=== PATIENT | female | born 1975 | race Caucasian/White ===

== ENCOUNTER 2016-06-23 13:08 | Emergency (ER) | payer MEDICAID | END 2016-06-23 13:55 | disposition home or self-care (01) | DX: H66.002 Acute suppurative otitis media without spontaneous rupture of ear drum, left ear (principal); R03.0 Elevated blood-pressure reading, without diagnosis of hypertension ==

== ENCOUNTER 2016-11-16 12:03 | Emergency (ER) | payer MEDICAID ==
[2016-11-16 12:08] VITALS: BP 168/100
[2016-11-16] MEDS ORDERED: HYDROcod/ACETAM 5/325 MG TABLET PO STA (15:08)
--- NOTE | 2016-11-16 15:10 | ED Physician Documentation ---
PD HPI CHEST PAIN - Stated complaint Stated Complaint: LT SIDE PX - Chief complaint Chief Complaint: General - History obtained from History obtained from: Patient - History of Present Illness Timing - onset: How many days ago (1-2) Timing - onset during: Light activity (no noted impact/ significant injury, but does twisting and lifting with car seats and kids.) Timing - duration: Days (2) Timing - details: Gradual onset, Still present, Waxing and waning Quality: Sharp, Pain Location: Left chest (midaxillary area, hurting with twisting, lifting and deep breathing. Does not feel dyspnea per se.) Radiation: No: Back, Abdominal Improved by: Rest Worsened by: Exertion, Inspiration, Movement, Position. No: Eating, Palpation Associated symptoms: No: Shortness of air, Nausea, Vomiting, Feeling faint / dizzy, Cough Similar symptoms before: Has not had sx before Recently seen: Not recently seen Review of Systems Constitutional: denies: Fever Nose: denies: Rhinorrhea / runny nose, Congestion Cardiac: denies: Palpitations Respiratory: denies: Cough, Wheezing GI: denies: Abdominal Pain, Nausea, Vomiting Skin: denies: Rash, Lesions PD PAST MEDICAL HISTORY - Past Medical History Past Medical History: Yes Cardiovascular: None Respiratory: None Endocrine/Autoimmune: HyPOthyroidism - Past Surgical History Past Surgical History: Yes - Present Medications Home Medications: Ambulatory Orders Medication Instructions Recorded Confirmed Hydrocodone/Acetaminophen 10 - 15 ml PO Q4H PRN #200 ml 06/23/16 [Hydrocodon-Acetamin 7.5-325/15] Albuterol 2.5 mg INH Q4H PRN 11/16/16 11/16/16 Alprazolam [Xanax] 11/16/16 Citalopram [CeleXA] 10 mg PO ONCE 11/16/16 11/16/16 Fluconazole [Diflucan] 150 mg PO 11/16/16 Furosemide [Lasix] 20 mg PO ONCE 11/16/16 11/16/16 HYDROcod/ACETAM 5/325 [[place] 5/325] 1 tab PO Q6H PRN #20 tablet 11/16/16 Lamotrigine [Lamictal] 150 mg PO 11/16/16 Levothyroxine [Synthroid] 75 mcg PO QDAC 11/16/16 11/16/16 Multivitamin [Multiple Vitamins] 1 each PO 11/16/16 Naproxen [Naprosyn] 500 mg PO BID PRN #20 tablet 11/16/16 buPROPion [Wellbutrin Xl] 11/16/16 metFORMIN [Glucophage] 500 mg PO ONCE 11/16/16 11/16/16 raNITIdine [Zantac] 150 mg PO DAILY 11/16/16 11/16/16 - Allergies Allergies/Adverse Reactions: Allergies Allergy/AdvReac Type Severity Reaction Status Date / Time Penicillins Allergy Rash Verified 11/16/16 12:09 - Social History Does the pt smoke?: No Smoking Status: Never smoker Does the pt drink ETOH?: No Does the pt have substance abuse?: No - Family History Family history: denies: Aortic aneursym, Aortic dissection - Immunizations Immunizations are current?: Yes - POLST Patient has POLST: No PD ED PE NORMAL - Vitals Vital signs reviewed: Yes - General General: Alert and oriented X 3, Well developed/nourished - HEENT HEENT: Pharynx benign - Neck Neck: Supple, no meningeal sign, No adenopathy - Cardiac Cardiac: RRR, No murmur - Respiratory Respiratory: Clear bilaterally, Other (left chest wall tenderness about ribs area 7-8 in midaxillary line. No rash, sores, redness. ) - Abdomen Abdomen: Normal bowel sounds, Soft, Non tender - Back Back: No CVA TTP, No spinal TTP - Derm Derm: Normal color, No rash - Extremities Extremities: No deformity, No tenderness to palpate, Normal ROM s pain, No edema , No calf tenderness / cord - Neuro Neuro: Alert and oriented X 3, No motor deficit, Normal speech Results - Vitals Vitals: Oxygen O2 Source Room air - Rads (name of study) chest Radiology: Prelim report reviewed, EMP read contemporaneously (no acute process) PD MEDICAL DECISION MAKING - ED course Complexity details: reviewed results, considered differential (Pain is at chest wall level and not abdomen. Seems muscular. No rash. ), d/w patient Departure - Departure Disposition: 01 Home, Self Care Clinical Impression: Muscular chest pain Condition: Stable Record reviewed to determine appropriate education?: Yes Instructions: ED Strain Chest Wall Prescriptions: Naproxen [Naprosyn] 500 mg PO BID PRN #20 tablet PRN Reason: Pain HYDROcod/ACETAM 5/325 [[place] 5/325] 1 tab PO Q6H PRN #20 tablet PRN Reason: Pain Comments: Sorry for the delay in your care today. Your x-ray appears normal so no obvious lung process going on. It seems like musculoskeletal chest wall problem. Naproxen twice daily for the next 7-10 days. Add Tylenol or hydrocodone if needed for pain. Recheck if not better over the next few days or if other symptoms develop such as cough, fever, rash, abdominal pain. Discharge Date/Time: 11/16/16 16:27
[2016-11-16] MEDS ORDERED: HYDROcod/ACETAM 5/325 MG TABLET ONE (15:17)
--- NOTE | 2016-11-16 16:09 | XRAY Preliminary Report ---
Exam: XR Chest 2 View PA/LAT IMPRESSION: No acute intrathoracic plain film abnormality. [facility] SITE ID: [id number]
--- NOTE | 2016-11-16 16:11 | XRAY Report ---
EXAM: CHEST RADIOGRAPHY EXAM DATE: 11/16/2016 03:56 PM. CLINICAL HISTORY: Left chest pain. COMPARISON: 05/09/2008. TECHNIQUE: 2 views. FINDINGS: Lungs/Pleura: No focal opacities evident. No pleural effusion. No pneumothorax. Normal volumes. Mediastinum: Heart and mediastinal contours are unremarkable. Other: None. IMPRESSION: No acute intrathoracic plain film abnormality. [facility] Referring Provider Line: [phone] SITE ID: [id number]
== END 2016-11-16 16:27 | disposition home or self-care (01) ==
LOC: ED 12:03
DX: R07.9 Chest pain, unspecified (principal)
CPT/HCPCS: 71020; 99283; A9270

== ENCOUNTER 2016-12-14 20:41 | Emergency (ER) | payer MEDICAID ==
[2016-12-14] MEDS ORDERED: GABAPENTIN 100 MG CAPSULE PO STA (21:35)
[2016-12-14] MEDS ORDERED: KETOROLAC 60 MG/2 ML VIAL IM STA (21:35)
--- NOTE | 2016-12-14 21:41 | ED Physician Documentation ---
PD HPI BACK PAIN - Stated complaint Stated Complaint: CHEST PX - Chief complaint Chief Complaint: Back Pain - History obtained from History obtained from: Patient - History of Present Illness Timing - onset: Other (For the last 2 weeks she has had sharp pain in the left chest and left side the back that is worse if she takes a deep breath, twists or bends. It is not worse with exertion and not worse with eating. She is not short of breath. There is no nausea. She was seen here recently for this and had a chest x-ray that was negative, she followed up with her doctor who prescribed her metformin.) Review of Systems Constitutional: denies: Fever, Chills Throat: denies: Dental pain / toothache, Sore throat Cardiac: denies: Palpitations, Pedal edema, Calf pain Respiratory: denies: Dyspnea, Cough, Hemoptysis, Wheezing PD PAST MEDICAL HISTORY - Past Medical History Cardiovascular: None Respiratory: None Endocrine/Autoimmune: HyPOthyroidism - Past Surgical History Past Surgical History: Yes - Present Medications Home Medications: Ambulatory Orders Medication Instructions Recorded Confirmed Citalopram [CeleXA] 10 mg PO ONCE 11/16/16 12/14/16 Levothyroxine [Synthroid] 75 mcg PO QDAC 11/16/16 12/14/16 Naproxen [Naprosyn] 500 mg PO BID PRN #20 tablet 11/16/16 12/14/16 buPROPion [Wellbutrin Xl] 300 mg PO DAILY 11/16/16 12/14/16 metFORMIN [Glucophage] 500 mg PO ONCE 11/16/16 12/14/16 HYDROcod/ACETAM 5/325 [[place] 5/325] 1 - 2 ea PO Q6H PRN #15 tablet 12/14/16 - Allergies Allergies/Adverse Reactions: Allergies Allergy/AdvReac Type Severity Reaction Status Date / Time Penicillins Allergy Rash Verified 11/16/16 12:09 - Social History Does the pt smoke?: No Smoking Status: Never smoker Does the pt drink ETOH?: No Does the pt have substance abuse?: No - Immunizations Immunizations are current?: Yes - POLST Patient has POLST: No PD ED PE NORMAL - Vitals Vital signs reviewed: Yes - General General: Alert and oriented X 3, No acute distress, Other (Occasionally winces with motion or when laughing) - HEENT HEENT: PERRL, EOMI - Neck Neck: Supple, no meningeal sign, No bony TTP - Cardiac Cardiac: RRR, No murmur - Respiratory Respiratory: No respiratory distress, Clear bilaterally - Abdomen Abdomen: Non tender - Back Back: Other (She is tender over the rhomboid musculature on the left, but also is tender over numerous other spots suggesting fibromyalgia including the sciatic crests on both sides, either side of the neck, medial side of either elbow and the medial side of either knee.) - Extremities Extremities: No edema, No calf tenderness / cord - Neuro Neuro: Alert and oriented X 3, Normal speech - Psych Psych: Normal mood, Normal affect Results - Vitals Vitals: Vital Signs - 24 hr 12/14/16 20:52 Temperature 36.7 C Heart Rate 109 H Respiratory 22 Rate Blood Pressure 147/82 H O2 Saturation 100 Oxygen O2 Source Room air - EKG (time done) 2200 Rate: Rate (enter#) (91) Rhythm: NSR [place]: Normal Intervals: Normal [place] QRS: Normal Ischemia: Normal ST segments Computer interpretation: Agree with computer - Labs Labs: Laboratory Tests 12/14/16 12/14/16 12/14/16 21:51 22:07 22:07 WBC 10.4 RBC 4.33 Hgb 11.9 L Hct 35.8 L MCV 82.7 MCH 27.4 MCHC 33.1 RDW 15.0 Plt Count 315 MPV 7.0 L Neut # 6.7 H Lymph # 2.7 [place] # 0.7 Eos # 0.3 Baso # 0.1 Absolute Nucleated RBC 0.01 Nucleated RBC % 0.1 Sodium 135 Potassium 3.7 Chloride 102 Carbon Dioxide 24 Anion Gap 9.0 BUN 12 Creatinine 0.7 Estimated GFR (MDRD) 93 Glucose 100 Calcium 8.9 Total Bilirubin 0.4 AST 24 ALT 20 Alkaline Phosphatase 72 Total Protein 8.1 Albumin 3.9 Globulin 4.2 Albumin/Globulin Ratio 0.9 L Lipase 26 Urine Color YELLOW Urine Clarity CLEAR Urine pH 6.0 Ur Specific [place] <=1.005 Urine Protein NEGATIVE Urine Glucose (UA) NEGATIVE Urine Ketones NEGATIVE Urine Occult Blood TRACE-INTA Urine Nitrite NEGATIVE Urine Bilirubin NEGATIVE Urine Urobilinogen 0.2 (NORMAL) Ur Leukocyte Esterase NEGATIVE Ur Microscopic Review NOT INDICATED Urine Culture Comments NOT INDICATED Urine HCG, Qual NEGATIVE PD MEDICAL DECISION MAKING - ED course ED course: 41-year-old woman with muscular appearing chest wall pain, she does have multiple tender spots in areas that could be consistent with fibromyalgia, she does have rheumatology follow-up pending. We tried some Toradol and gabapentin , but she did not want to continue the gabapentin, she has taken in the past, she says it makes her swell. Departure - Departure Disposition: Home, Self Care Clinical Impression: Muscular chest pain Condition: Good Record reviewed to determine appropriate education?: Yes Instructions: ED Chest Pain NonCardiac Prescriptions: HYDROcod/ACETAM 5/325 [[place] 5/325] 1 - 2 ea PO Q6H PRN #15 tablet PRN Reason: Pain Comments: Keep the appointments that is upcoming for rheumatology follow-up. Return if worse. Discussed the possibility of fibromyalgia with your damage appraiser. Your blood pressure was elevated today on check into the emergency department. This does not mean that you have hypertension, it is a common phenomenon to come to the emergency department and have elevated blood pressure. I recommend that she see your primary care physician within the week to have it rechecked when you are feeling better. Do not drink or drive while taking narcotic pain medication. Note that many narcotic pain relievers also contain Tylenol/acetaminophen. Please ensure that your total dose of acetaminophen from all sources does not exceed 3 g (3000 mg) per day. You may get constipated while on this medication. Take a stool softener such as Colace twice a day while you are on it. Also add an ipil-wdw-oxixsay laxative such as senna or MiraLAX on any day that you do not have a bowel movement. If you received a narcotic pain medication or sedative while in the emergency department, do not drive for the next 24 hours.
[2016-12-14] MEDS ORDERED: KETOROLAC 60 MG/2 ML VIAL ONE (21:48)
[2016-12-14] MEDS ORDERED: GABAPENTIN 100 MG CAPSULE ONE (21:48)
[2016-12-14 22:05] LABS: BILIRUBIN,URINE NEGATIVE (NEGATIVE)
[2016-12-14 22:06] LABS: UA CHARGE (STRIP ONLY) YES; UR CULTURE IF IND NOT INDICATED
[2016-12-14 22:08] LABS: HCG UR QUAL NEGATIVE
[2016-12-14 22:13] LABS: BASOPHILS # (AUTO) 0.1 10^3/uL (0.0-0.1); BASOPHILS % (AUTO) 0.7 %; EOSINOPHILS # (AUTO) 0.3 10^3/uL (0.0-0.7); EOSINOPHILS % (AUTO) 2.7 %; HCT - HEMATOCRIT 35.8 % (37.0-47.0); HGB - HEMOGLOBIN 11.9 g/dL (12.0-16.0); LYMPHOCYTES # (AUTO) 2.7 10^3/uL (1.5-3.5); LYMPHOCYTES % (AUTO) 25.9 %; MEAN CORPUSCULAR HEMOGLOBIN 27.4 pg (27.0-31.0); MEAN CORPUSCULAR HGB CONC 33.1 g/dL (32.0-36.0); MEAN CORPUSCULAR VOLUME 82.7 fL (81.0-99.0); MONOCYTES # (AUTO) 0.7 10^3/uL (0.0-1.0); MONOCYTES % (AUTO) 6.5 %; NEUTROPHILS # (AUTO) 6.7 10^3/uL (1.5-6.6); NEUTROPHILS % (AUTO) 64.2 %; NUCLEATED RED BLOOD CELLS AUTO 0.1 /100WBC; RED BLOOD COUNT 4.33 10^6/uL (4.20-5.40); UNCORRECTED WHITE BLOOD COUNT 10.4 x10^3/uL; WHITE BLOOD COUNT 10.4 x10^3/uL (4.8-10.8)
[2016-12-14 22:25] LABS: ALBUMIN/GLOBULIN RATIO 0.9 (1.0-2.2); BILIRUBIN,TOTAL 0.4 mg/dL (0.2-1.0); CALCIUM 8.9 mg/dL (8.5-10.3); CREATININE 0.7 mg/dL (0.4-1.0); POTASSIUM 3.7 mmol/L (3.5-5.0); TOTAL PROTEIN 8.1 g/dL (6.7-8.2)
[2016-12-14] MEDS ORDERED: HYDROcod/ACET 5/325 Prepack 6 PO STA (22:38)
[2016-12-14] MEDS ORDERED: HYDROcod/ACET 5/325 Prepack 6 PO ONE (22:45)
[2016-12-14 22:53] VITALS: BP 153/103
== END 2016-12-14 22:54 | disposition home or self-care (01) ==
LOC: ED 20:41
DX: R07.89 Other chest pain (principal); R03.0 Elevated blood-pressure reading, without diagnosis of hypertension; E03.9 Hypothyroidism, unspecified
CPT/HCPCS: 36415; 80053; 81003; 81025; 83690; 85025; 93005; 96372; 99283; A9270; 81001; 87086

== ENCOUNTER 2017-07-18 01:52 | Emergency (ER) | payer MEDICAID ==
[2017-07-18 02:46] LABS: BASOPHILS # (AUTO) 0.2 10^3/uL (0.0-0.1); BASOPHILS % (AUTO) 1.5 %; EOSINOPHILS # (AUTO) 0.4 10^3/uL (0.0-0.7); EOSINOPHILS % (AUTO) 3.1 %; HGB - HEMOGLOBIN 12.4 g/dL (12.0-16.0); LYMPHOCYTES # (AUTO) 4.1 10^3/uL (1.5-3.5); LYMPHOCYTES % (AUTO) 30.8 %; MEAN CORPUSCULAR HEMOGLOBIN 27.6 pg (27.0-31.0); MEAN CORPUSCULAR HGB CONC 31.9 g/dL (32.0-36.0); MEAN CORPUSCULAR VOLUME 86.3 fL (81.0-99.0); MEAN PLATELET VOLUME 7.9 fL (7.9-10.8); MONOCYTES % (AUTO) 7.2 %; NEUTROPHILS # (AUTO) 7.6 10^3/uL (1.5-6.6); NEUTROPHILS % (AUTO) 57.4 %; PLT - PLATELET COUNT 278 10^3/uL (130-450); RED BLOOD COUNT 4.49 10^6/uL (4.20-5.40); RED CELL DISTRIBUTION WIDTH 15.8 % (12.0-15.0); WHITE BLOOD COUNT 13.3 x10^3/uL (4.8-10.8)
--- NOTE | 2017-07-18 03:02 | ED Physician Documentation ---
History of Present Illness - Stated complaint Stated Complaint: CHEST PAIN,SOA - Chief complaint Chief Complaint: General - History obtained from History obtained from: Patient - History of Present Illness Timing: How many weeks ago (6) - Additonal information Additional information: Patient is a 42 year old female with a history of bipolar and depression who is presenting to the emergency department for chest pain and leg swelling. Patient states that about 6 weeks ago she fell and hurt her knee. She states that since that time she has had intermittent selling in her leg. Patient states that for the last few days she has felt short of breath. Patient looked on line and her symptoms sounded like a blood clot so she wanted to come get checked out. Review of Systems Constitutional: denies: Fever, Chills Eyes: reports: Reviewed and negative Ears: reports: Reviewed and negative Nose: reports: Reviewed and negative Cardiac: reports: Chest pain / pressure, Pedal edema, Calf pain. denies: Palpitations Respiratory: reports: Dyspnea. denies: Cough, Wheezing GI: denies: Nausea, Vomiting : reports: Reviewed and negative Skin: reports: Rash Musculoskeletal: reports: Extremity pain, Extremity swelling Neurologic: reports: Reviewed and negative Psychiatric: reports: Reviewed and negative PD PAST MEDICAL HISTORY - Past Medical History Past Medical History: Yes Cardiovascular: None Respiratory: None Endocrine/Autoimmune: HyPOthyroidism Psych: Depression, Anxiety, Bipolar disorder - Past Surgical History Past Surgical History: Yes - Present Medications Home Medications: Ambulatory Orders Medication Instructions Recorded Confirmed Citalopram [CeleXA] 10 mg PO ONCE 11/16/16 12/14/16 Levothyroxine [Synthroid] 75 mcg PO QDAC 11/16/16 12/14/16 Naproxen [Naprosyn] 500 mg PO BID PRN #20 tablet 11/16/16 12/14/16 buPROPion [Wellbutrin Xl] 300 mg PO DAILY 11/16/16 12/14/16 metFORMIN [Glucophage] 500 mg PO ONCE 11/16/16 12/14/16 HYDROcod/ACETAM 5/325 [[place] 5/325] 1 - 2 ea PO Q6H PRN #15 tablet 12/14/16 - Allergies Allergies/Adverse Reactions: Allergies Allergy/AdvReac Type Severity Reaction Status Date / Time Penicillins Allergy Rash Verified 07/18/17 02:12 - Social History Does the pt smoke?: Yes Smoking Status: Current every day smoker Does the pt drink ETOH?: No Does the pt have substance abuse?: No - Immunizations Immunizations are current?: Yes - POLST Patient has POLST: No PD ED PE NORMAL - Vitals Vital signs reviewed: Yes - General General: Alert and oriented X 3 - HEENT HEENT: Atraumatic - Neck Neck: No JVD - Cardiac Cardiac: RRR, No murmur - Respiratory Respiratory: No respiratory distress, Clear bilaterally - Abdomen Abdomen: Soft - Neuro Neuro: Alert and oriented X 3, No motor deficit, Normal speech Eye Opening: Spontaneous PD ED PE EXPANDED - General General: Alert, Anxious - Derm Derm: Rash (bilateral lower extremity hemosiderin discoloration) - Extremities Extremities: Pedal edema bilateral Results - Vitals Vitals: Vital Signs - 24 hr 07/18/17 07/18/17 07/18/17 01:58 02:30 03:33 Temperature 37.1 C Heart Rate 99 97 95 Respiratory 20 18 17 Rate Blood Pressure 128/81 H 151/75 H 147/88 H O2 Saturation 100 97 98 Oxygen O2 Source Room air - EKG (time done) 0205 Rate: Rate (enter#) (98) Rhythm: NSR [place]: Normal Intervals: Normal [place] QRS: Normal Ischemia: Normal ST segments Compare to prior EKG: Old EKG unavailable - Labs Labs: Laboratory Tests 07/18/17 07/18/17 07/18/17 01:53 01:53 02:28 WBC 13.3 H RBC 4.49 Hgb 12.4 Hct 38.7 MCV 86.3 MCH 27.6 MCHC 31.9 L RDW 15.8 H Plt Count 278 MPV 7.9 Neut # 7.6 H Lymph # 4.1 H [place] # 1.0 Eos # 0.4 Baso # 0.2 H Absolute Nucleated RBC 0.00 Nucleated RBC % 0.0 PT 10.9 INR 1.0 APTT 34.9 H D-Dimer 226.3 Sodium Potassium Chloride Carbon Dioxide Anion Gap BUN Creatinine Estimated GFR (MDRD) Glucose Calcium Total Bilirubin AST ALT Alkaline Phosphatase Troponin I < 0.04 B-Natriuretic Peptide Total Protein Albumin Globulin Albumin/Globulin Ratio Lipase 07/18/17 07/18/17 02:28 02:54 WBC RBC Hgb Hct MCV MCH MCHC RDW Plt Count MPV Neut # Lymph # [place] # Eos # Baso # Absolute Nucleated RBC Nucleated RBC % PT INR APTT D-Dimer Sodium 136 Potassium 3.6 Chloride 102 Carbon Dioxide 27 Anion Gap 7.0 BUN 16 Creatinine 0.9 Estimated GFR (MDRD) 69 L Glucose 110 H Calcium 8.8 Total Bilirubin 0.5 AST 28 ALT 22 Alkaline Phosphatase 78 Troponin I B-Natriuretic Peptide 10 Total Protein 7.7 Albumin 3.8 Globulin 3.9 Albumin/Globulin Ratio 1.0 Lipase 27 PD MEDICAL DECISION MAKING - ED course Complexity details: reviewed old records, reviewed results, re-evaluated patient , considered differential, d/w patient ED course: patient was seen and examined at bedside. IV access was gained and labs were drawn. ekg was performed and was normal sinus. Patient's labs revealed no major abnormalities. Patient's d-dimer was negative. Patient's HEART score was 2. Patient required no further inpatient work up and was stable for discharge with outpatient follow up. Departure - Departure Disposition: 01 Home, Self Care Clinical Impression: Atypical chest pain Condition: Good Instructions: ED Chest Pain NonCardiac Follow-Up: TRISH ELIZABETH MD [Primary Care Provider] - Within 3 Days Comments: Your diagnostics today were within normal limits. Your symptoms are unlikely cardiac or pulmonary in nature. You should try icing and elevating your legs and wear compression stockings. You should follow up with your doctor if your symptoms persist. You may return to the emergency department at any time for new, worsening or uncontrollable symptoms. Discharge Date/Time: 07/18/17 03:50
[2017-07-18 03:09] LABS: PT - PROTHROMBIN TIME 10.9 secs (9.9-12.6)
[2017-07-18 03:11] LABS: ALBUMIN 3.8 g/dL (3.2-5.5); BILIRUBIN,TOTAL 0.5 mg/dL (0.2-1.0); CALCIUM 8.8 mg/dL (8.5-10.3); CREATININE 0.9 mg/dL (0.4-1.0); TOTAL PROTEIN 7.7 g/dL (6.7-8.2)
[2017-07-18 03:22] LABS: D-DIMER 226.3 ng/mL (200.0-255.0)
[2017-07-18 03:39] VITALS: BP 147/88
== END 2017-07-18 03:50 | disposition home or self-care (01) ==
LOC: ED 01:52
DX: R07.9 Chest pain, unspecified (principal); E03.9 Hypothyroidism, unspecified; F31.9 Bipolar disorder, unspecified; F41.9 Anxiety disorder, unspecified; F17.200 Nicotine dependence, unspecified, uncomplicated; M79.89 Other specified soft tissue disorders; R06.02 Shortness of breath
CPT/HCPCS: 36415; 80053; 83690; 83880; 84484; 85025; 85379; 85610; 85730; 93005; 99283; 99284

== ENCOUNTER 2017-09-18 17:53 | Emergency (ER) | payer MEDICAID ==
[2017-09-18] MEDS ORDERED: TETANUS/DIPHTHERIA/PERTUSSIS 0.5 ML SYRINGE IM ONE (18:38)
[2017-09-18] MEDS ORDERED: LIDOCAINE 2% 10 ML MDV ONE (18:41)
--- NOTE | 2017-09-18 19:22 | ED Physician Documentation ---
PD HPI UPPER EXT INJURY - Stated complaint Stated Complaint: LT FING LAC INJ - Chief complaint Chief Complaint: Laceration - History obtained from History obtained from: Patient - History of Present Illness Location: Left, Finger Type of injury: Laceration Where injury occurred: Home Timing - details: Abrupt onset Worsened by: Palpating Similar symptoms before: Has not had sx before Recently seen: Not recently seen - Additonal information Additional information: Patient is a 42 year old female who is presenting to the emergency department for finger laceration. Patient states that she was doing arts and crafts when she cut the index finger on her left hand. Patient is unsure of her tetanus status. Review of Systems Ten Systems: 10 systems reviewed and negative PD PAST MEDICAL HISTORY - Past Medical History Past Medical History: No Cardiovascular: None Respiratory: None Endocrine/Autoimmune: HyPOthyroidism Psych: Depression, Anxiety, Bipolar disorder - Past Surgical History Past Surgical History: Yes - Present Medications Home Medications: Ambulatory Orders Medication Instructions Recorded Confirmed Citalopram [CeleXA] 10 mg PO ONCE 11/16/16 12/14/16 Levothyroxine [Synthroid] 75 mcg PO QDAC 11/16/16 12/14/16 Naproxen [Naprosyn] 500 mg PO BID PRN #20 tablet 11/16/16 12/14/16 buPROPion [Wellbutrin Xl] 300 mg PO DAILY 11/16/16 12/14/16 metFORMIN [Glucophage] 500 mg PO ONCE 11/16/16 12/14/16 HYDROcod/ACETAM 5/325 [[place] 5/325] 1 - 2 ea PO Q6H PRN #15 tablet 12/14/16 - Allergies Allergies/Adverse Reactions: Allergies Allergy/AdvReac Type Severity Reaction Status Date / Time Penicillins Allergy Rash Verified 07/18/17 02:12 - Social History Does the pt smoke?: Yes Smoking Status: Current every day smoker Does the pt drink ETOH?: No Does the pt have substance abuse?: No - Immunizations Immunizations are current?: Yes - POLST Patient has POLST: No PD ED PE NORMAL - General General: Alert and oriented X 3 - HEENT HEENT: Atraumatic - Cardiac Cardiac: RRR - Respiratory Respiratory: No respiratory distress - Neuro Neuro: Alert and oriented X 3 PD ED PE EXPANDED - Extremities Extremities: Left finger(s) (2cm lac distal portion of fat pad), Motor intact, Sensory intact, Vascular intact, Tendon intact Results - Vitals Vitals: Vital Signs - 24 hr 09/18/17 09/18/17 18:05 19:26 Temperature 36.0 C L 36.0 C L Heart Rate 95 94 Respiratory 18 20 Rate Blood Pressure 144/87 H 142/91 H O2 Saturation 99 96 Oxygen O2 Source Room air Procedures - Laceration (location) left 2nd digit Length in cm: 2 Wound type: Flap Neurovascular status: Sensory intact, Motor intact, Vascular intact Tendon involvement: Tendon intact Anesthesia: Lidocaine 2% Wound Preparation: Irrigated copiously NS Skin layer closure: Size #-0 - enter number (4), Sutures - enter # (4) Other: Patient tolerated well, Neurovascular intact, Dressing applied, Tetanus booster given Complexity: Simple PD MEDICAL DECISION MAKING - ED course Complexity details: reviewed old records, reviewed results, re-evaluated patient , d/w patient ED course: Patient was seen and examined at bedside. Patient's laceration was repaired as described above. patient was stable for discharge with outpatient follow up. - Sepsis Event Vital Signs: Vital Signs - 24 hr 09/18/17 09/18/17 18:05 19:26 Temperature 36.0 C L 36.0 C L Heart Rate 95 94 Respiratory 18 20 Rate Blood Pressure 144/87 H 142/91 H O2 Saturation 99 96 Oxygen O2 Source Room air Departure - Departure Disposition: 01 Home, Self Care Clinical Impression: Laceration Condition: Good Instructions: ED Laceration Sure Close Follow-Up: TRISH ELIZABETH MD [Primary Care Provider] - As Needed Comments: Your symptoms today are being caused by a finger laceration. you will need to keep it clean and dry. the sutures will dissolve on their own. you can take motrin or tylenol as needed for pain. You should monitor for signs of infection. You may return to the emergency department at any time for new, worsening or uncontrollable symptoms. Discharge Date/Time: 09/18/17 19:26
[2017-09-18 19:28] VITALS: BP 142/91
== END 2017-09-18 19:26 | disposition home or self-care (01) ==
LOC: ED 17:53
DX: S61.211A Laceration without foreign body of left index finger without damage to nail, initial encounter (principal); F17.200 Nicotine dependence, unspecified, uncomplicated; Z23 Encounter for immunization; W27.8XXA Contact with other nonpowered hand tool, initial encounter; Y92.009 Unspecified place in unspecified non-institutional (private) residence as the place of occurrence of the external cause; Y99.8 Other external cause status
CPT/HCPCS: 12001; 90471; 99283

== ENCOUNTER 2018-07-31 17:30 | Emergency (ER) | payer MEDICAID ==
[2018-07-31] MEDS ORDERED: KETOROLAC 60 MG/2 ML VIAL IM STA (17:58)
[2018-07-31] MEDS ORDERED: HYDROmorphone 1 MG/ML CARPUJECT IM STA (17:58)
--- NOTE | 2018-07-31 18:01 | ED Physician Documentation ---
PD HPI CHEST PAIN - Stated complaint Stated Complaint: RT RIB PAIN - Chief complaint Chief Complaint: Abd Pain - History obtained from History obtained from: Patient - History of Present Illness Timing - onset: Other (2 days ago during a cough felt A pop in the right lower lateral ribs and has had severe pain especially with deep breathing ever since. She is not coughing a lot per se. She is not short of breath.) Review of Systems Constitutional: denies: Fever, Chills Cardiac: denies: Palpitations Respiratory: denies: Dyspnea, Cough PD PAST MEDICAL HISTORY - Past Medical History Cardiovascular: None Respiratory: None Endocrine/Autoimmune: HyPOthyroidism Psych: Depression, Anxiety, Bipolar disorder - Past Surgical History Past Surgical History: Yes - Present Medications Home Medications: Ambulatory Orders Medication Instructions Recorded Confirmed Citalopram [CeleXA] 10 mg PO ONCE 11/16/16 12/14/16 Levothyroxine [Synthroid] 75 mcg PO QDAC 11/16/16 12/14/16 buPROPion [Wellbutrin Xl] 300 mg PO DAILY 11/16/16 12/14/16 metFORMIN [Glucophage] 500 mg PO ONCE 11/16/16 12/14/16 Hydrocodone/Acetaminophen 1 - 2 each PO Q6H PRN #14 tablet 07/31/18 [Hydrocodon-Acetaminophen 5-325] Ibuprofen [Motrin] 800 mg PO Q8H PRN #30 tablet 07/31/18 Lisinopril 10 mg PO 07/31/18 07/31/18 - Allergies Allergies/Adverse Reactions: Allergies Allergy/AdvReac Type Severity Reaction Status Date / Time Penicillins Allergy Rash Verified 07/31/18 17:53 - Social History Does the pt smoke?: Yes Smoking Status: Current every day smoker Does the pt drink ETOH?: No ETOH Use: Wine Does the pt have substance abuse?: No - Immunizations Immunizations are current?: Yes - POLST Patient has POLST: No PD ED PE NORMAL - Vitals Vital signs reviewed: Yes - General General: Alert and oriented X 3, No acute distress - Neck Neck: Supple, no meningeal sign, No bony TTP - Cardiac Cardiac: RRR, No murmur - Respiratory Respiratory: No respiratory distress, Other (Splinting her breaths on the right, she is tender to the right lower lateral ribs. No corresponding abdominal tenderness.) - Abdomen Abdomen: Non tender - Extremities Extremities: No edema, No calf tenderness / cord - Neuro Neuro: Alert and oriented X 3, Normal speech Results - Vitals Vitals: Vital Signs - 24 hr 07/31/18 17:46 Temperature 36.7 C Heart Rate 111 H Respiratory 18 Rate Blood Pressure 193/105 H O2 Saturation 99 Oxygen O2 Source Room air - Rads (name of study) R ribs and chest Radiology: EMP read contemporaneously (normal) PD MEDICAL DECISION MAKING - ED course ED course: 43-year-old woman presents with right chest wall pain that started clearly while coughing and is reproducible consistent with intercostal muscle tear. Departure - Departure Disposition: 01 Home, Self Care Clinical Impression: Intercostal muscle tear Qualifiers: Encounter type: initial encounter Qualified Code(s): S29.019A - Strain of muscle and tendon of unspecified wall of thorax, initial encounter Condition: Good Record reviewed to determine appropriate education?: Yes Instructions: ED Contusion Chest Wall Prescriptions: Hydrocodone/Acetaminophen [Hydrocodon-Acetaminophen 5-325] 1 - 2 each PO Q6H PRN #14 tablet PRN Reason: pain Ibuprofen [Motrin] 800 mg PO Q8H PRN #30 tablet PRN Reason: PAIN &/OR FEVER Comments: Call your doctor to arrange a follow-up appointment, make the next available appointment. In the interim, return anytime if worse or if new symptoms develop. Do not drink or drive while taking narcotic pain medication. Note that many narcotic pain relievers also contain Tylenol/acetaminophen. Please ensure that your total dose of acetaminophen from all sources does not exceed 3 g (3000 mg) per day. You may get constipated while on this medication. Take a stool softener such as Colace twice a day while you are on it. Also add an xire-afd-ptynagm laxative such as senna or MiraLAX on any day that you do not have a bowel movement. If you received a narcotic pain medication or sedative while in the emergency department, do not drive for the next 24 hours. Your blood pressure was elevated today on check into the emergency department. This does not mean that you have hypertension, it is a common phenomenon to come to the emergency department and have elevated blood pressure. I recommend that you see your primary care physician within the week to have it rechecked when you are feeling better.
--- NOTE | 2018-07-31 18:51 | XRAY Report ---
Reason: rib pain Procedure Date: 07/31/2018 Accession Number: [id number] / [id number] Procedure: XR - Ribs w/PA Chest RT CPT Code: FULL RESULT: EXAM: RIGHT RIB RADIOGRAPHY EXAM DATE: 07/31/2018 06:37 PM. CLINICAL HISTORY: Rib pain. COMPARISON: CHEST 2 VIEW PA/LAT 11/16/2016 3:36 PM. TECHNIQUE: 1 view of the chest and 2 views of the ribs. FINDINGS: Bones: Normal. No fracture or bone lesion. Lungs: No focal opacities. No pneumothorax. No pleural effusions. Mediastinum: Heart and mediastinal contours are unremarkable. Other: None. IMPRESSION: Normal chest and rib radiography. [facility]
[2018-07-31 19:01] VITALS: BP 143/105
== END 2018-07-31 19:00 | disposition home or self-care (01) ==
LOC: ED 17:30
DX: S29.011A Strain of muscle and tendon of front wall of thorax, initial encounter (principal); X58.XXXA Exposure to other specified factors, initial encounter; R03.0 Elevated blood-pressure reading, without diagnosis of hypertension; F17.200 Nicotine dependence, unspecified, uncomplicated
CPT/HCPCS: 71101; 96372; 99283; J1170

== ENCOUNTER 2018-09-27 15:39 | Emergency (ER) | payer MEDICAID ==
--- NOTE | 2018-09-27 16:16 | XRAY Report ---
Reason: CP Procedure Date: 09/27/2018 Accession Number: [id number] / [id number] Procedure: XR - Chest 1 View X-Ray CPT Code: 07468 FULL RESULT: EXAM: CHEST RADIOGRAPHY EXAM DATE: 09/27/2018 04:07 PM. CLINICAL HISTORY: Chest pain for 2 weeks. COMPARISON: RIBS W/PA CHEST RT 07/31/2018 6:21 PM. TECHNIQUE: 1 view. FINDINGS: Lungs/Pleura: No focal opacities evident. No pleural effusion. No pneumothorax. Mediastinum: Within exam limitations, the cardiomediastinal contour is normal. Other: No fractures identified. IMPRESSION: Normal single view chest. [facility]
[2018-09-27 16:24] LABS: BASOPHILS # (AUTO) 0.1 10^3/uL (0.0-0.1); BASOPHILS % (AUTO) 0.5 %; EOSINOPHILS # (AUTO) 0.3 10^3/uL (0.0-0.7); EOSINOPHILS % (AUTO) 2.8 %; HGB - HEMOGLOBIN 13.4 g/dL (12.0-16.0); LYMPHOCYTES # (AUTO) 2.8 10^3/uL (1.5-3.5); LYMPHOCYTES % (AUTO) 22.9 %; MEAN CORPUSCULAR HEMOGLOBIN 30.5 pg (27.0-31.0); MEAN CORPUSCULAR HGB CONC 32.4 g/dL (32.0-36.0); MEAN CORPUSCULAR VOLUME 93.9 fL (81.0-99.0); MEAN PLATELET VOLUME 9.1 fL (7.9-10.8); MONOCYTES # (AUTO) 0.9 10^3/uL (0.0-1.0); MONOCYTES % (AUTO) 7.2 %; NEUTROPHILS # (AUTO) 7.8 10^3/uL (1.5-6.6); PLT - PLATELET COUNT 365 10^3/uL (130-450); RED CELL DISTRIBUTION WIDTH 13.2 % (12.0-15.0)
--- NOTE | 2018-09-27 16:28 | ED Physician Documentation ---
PD HPI CHEST PAIN - Stated complaint Stated Complaint: CHEST PX - Chief complaint Chief Complaint: Cardiac - History obtained from History obtained from: Patient - History of Present Illness Timing - onset: How many days ago (3) Timing - onset during: Rest Timing - details: Still present Quality: Pain Location: Substernal Worsened by: Inspiration, Other (cough) Associated symptoms: Cough. No: Shortness of air, Nausea, Vomiting Similar symptoms before: Has not had sx before - Additional information Additional information: The patient is a 43-year-old female who presents with substernal chest pain that started 3 days ago and has persisted since that time. It is worse with inspiration or with coughing. She reports a nonproductive cough. She denies fever, shortness of breath, nausea or vomiting. She also reports slight discomfort in her upper back. She denies history of similar symptoms in the past. Medical history is significant for hypertension and diabetes. She does not smoke cigarettes. Review of Systems Constitutional: denies: Fever, Fatigue Ears: denies: Tinnitus/ringing Nose: denies: Congestion Throat: denies: Sore throat Cardiac: reports: Chest pain / pressure. denies: Palpitations Respiratory: reports: Cough. denies: Dyspnea GI: denies: Abdominal Pain, Nausea, Vomiting : denies: Dysuria Skin: denies: Rash Musculoskeletal: denies: Extremity pain, Extremity swelling Neurologic: denies: Focal weakness, Numbness, Headache PD PAST MEDICAL HISTORY - Past Medical History Cardiovascular: None, Hypertension Respiratory: None Endocrine/Autoimmune: Type 2 diabetes, HyPOthyroidism Psych: Depression, Anxiety, Bipolar disorder - Past Surgical History Past Surgical History: Yes - Present Medications Home Medications: Ambulatory Orders Medication Instructions Recorded Confirmed Citalopram [CeleXA] 10 mg PO ONCE 11/16/16 12/14/16 Levothyroxine [Synthroid] 75 mcg PO QDAC 11/16/16 12/14/16 buPROPion [Wellbutrin Xl] 300 mg PO DAILY 11/16/16 12/14/16 metFORMIN [Glucophage] 500 mg PO ONCE 11/16/16 12/14/16 Hydrocodone/Acetaminophen 1 - 2 each PO Q6H PRN #14 tablet 07/31/18 [Hydrocodon-Acetaminophen 5-325] Ibuprofen [Motrin] 800 mg PO Q8H PRN #30 tablet 07/31/18 Lisinopril 10 mg PO 07/31/18 07/31/18 Hydrocodone/Acetaminophen 1 - 2 each PO Q6H PRN #12 tablet 09/27/18 [Hydrocodon-Acetaminophen 5-325] Naproxen 500 mg PO BID #30 tablet 09/27/18 - Allergies Allergies/Adverse Reactions: Allergies Allergy/AdvReac Type Severity Reaction Status Date / Time Penicillins Allergy Rash Verified 09/27/18 15:44 - Social History Does the pt smoke?: Yes Smoking Status: Current every day smoker Does the pt drink ETOH?: No Does the pt have substance abuse?: No - Immunizations Immunizations are current?: Yes - POLST Patient has POLST: No PD ED PE NORMAL - Vitals Vital signs reviewed: Yes (Hypertensive) - General General: Alert and oriented X 3, Well developed/nourished, Other (Morbidly obese.) - HEENT HEENT: Atraumatic, Pharynx benign - Neck Neck: No adenopathy, No JVD - Cardiac Cardiac: RRR, No murmur - Respiratory Respiratory: No respiratory distress, Clear bilaterally - Abdomen Abdomen: Soft, Non tender - Back Back: No CVA TTP - Derm Derm: No rash - Extremities Extremities: No edema, No calf tenderness / cord - Neuro Neuro: Alert and oriented X 3, No motor deficit, Normal speech Results - Vitals Vitals: Vital Signs - 24 hr 09/27/18 15:41 Temperature 35.9 C L Heart Rate 93 Respiratory 19 Rate Blood Pressure 174/104 H O2 Saturation 99 Oxygen O2 Source Room air - EKG (time done) 15:50 Rate: Rate (enter#) (87) Rhythm: NSR [place]: Normal Intervals: Normal [place] QRS: Normal Ischemia: Normal ST segments Computer interpretation: Agree with computer - Labs Labs: Laboratory Tests 09/27/18 09/27/18 09/27/18 16:10 16:10 16:10 WBC 12.0 H RBC 4.40 Hgb 13.4 Hct 41.3 MCV 93.9 MCH 30.5 MCHC 32.4 RDW 13.2 Plt Count 365 MPV 9.1 Neut # (Auto) 7.8 H Lymph # (Auto) 2.8 [place] # (Auto) 0.9 Eos # (Auto) 0.3 Baso # (Auto) 0.1 Absolute Nucleated RBC 0.00 Nucleated RBC % 0.0 Sodium 138 Potassium 4.0 Chloride 97 L Carbon Dioxide 28 Anion Gap 13.0 BUN 14 Creatinine 0.8 Estimated GFR (MDRD) 79 L Glucose 105 H Calcium 9.8 Total Bilirubin 0.7 AST 25 ALT 25 Alkaline Phosphatase 94 Troponin I < 0.04 Troponin I High Sens 5.8 Total Protein 8.3 H Albumin 3.8 Globulin 4.5 H Albumin/Globulin Ratio 0.8 L Lipase 26 - Rads (name of study) CXR Radiology: Prelim report reviewed, EMP read contemporaneously, See rad report (Normal single view chest.) PD MEDICAL DECISION MAKING - ED course Complexity details: reviewed old records, reviewed results, re-evaluated patient, considered differential, d/w patient ED course: The patient's presentation is most consistent with pleurisy. She has the typical pleuritic chest pain, with a normal-appearing chest x-ray. I doubt cardiac ischemia, and her EKG and troponin are normal. I doubt pulmonary embolus. Gastroesophageal reflux was considered, but is less likely. Treatment in the emergency department included administration of GI cocktail, which did not change her symptoms. Naprosyn 500 mg administered orally. She is being discharged with prescription for Naprosyn, and for Vicodin, 12 tablets. I discussed with her the expected course of illness, symptomatic treatment and outpatient follow-up, as well as potentially worrisome signs or symptoms that should prompt reevaluation in the emergency department. Departure - Departure Disposition: 01 Home, Self Care Clinical Impression: Pleurisy Condition: Stable Instructions: ED Chest Pain Pleurisy Follow-Up: Ruben Riley MD [Primary Care Provider] - Prescriptions: Hydrocodone/Acetaminophen [Hydrocodon-Acetaminophen 5-325] 1 - 2 each PO Q6H PRN #12 tablet PRN Reason: pain Naproxen 500 mg PO BID #30 tablet Comments: Take Naproxen twice daily as prescribed. You can use Vicodin as prescribed if needed for pain. Follow-up with your primary physician within 1 week. Call to schedule an appointment. Return to the emergency department if you develop increasing chest pain or shortness of breath, or otherwise worsening symptoms.
[2018-09-27 16:32] LABS: ALBUMIN 3.8 g/dL (3.2-5.5); ALBUMIN/GLOBULIN RATIO 0.8 (1.0-2.2); BILIRUBIN,TOTAL 0.7 mg/dL (0.2-1.0); CALCIUM 9.8 mg/dL (8.5-10.3); CREATININE 0.8 mg/dL (0.4-1.0); TOTAL PROTEIN 8.3 g/dL (6.7-8.2)
[2018-09-27] MEDS ORDERED: MAG HYDROX/AL HYDROX/SIMETH 30 ML UDC PO STA (16:32)
[2018-09-27] MEDS ORDERED: LIDOCAINE VISCOUS 2% 15 ML UDC MM STA (16:33)
[2018-09-27 16:37] LABS: TROPONIN I < 0.04 ng/mL (<0.49)
[2018-09-27] MEDS ORDERED: NAPROXEN 250 MG TABLET PO STA (17:29)
[2018-09-27 17:56] VITALS: BP 168/91
== END 2018-09-27 17:55 | disposition home or self-care (01) ==
LOC: ED 15:39
DX: R09.1 Pleurisy (principal); I10 Essential (primary) hypertension; E11.9 Type 2 diabetes mellitus without complications; Z79.84 Long term (current) use of oral hypoglycemic drugs; F17.200 Nicotine dependence, unspecified, uncomplicated
CPT/HCPCS: 36415; 71045; 80053; 83690; 84484; 85025; 93005; 99283; 99284; A9270

== ENCOUNTER 2018-12-02 18:35 | Emergency (ER) | payer MEDICAID ==
[2018-12-02 20:58] LABS: BASOPHILS % (AUTO) 0.4 %; EOSINOPHILS # (AUTO) 0.3 10^3/uL (0.0-0.7); EOSINOPHILS % (AUTO) 3.3 %; HGB - HEMOGLOBIN 12.3 g/dL (12.0-16.0); LYMPHOCYTES # (AUTO) 2.3 10^3/uL (1.5-3.5); LYMPHOCYTES % (AUTO) 27.4 %; MEAN CORPUSCULAR HEMOGLOBIN 31.1 pg (27.0-31.0); MEAN CORPUSCULAR HGB CONC 32.7 g/dL (32.0-36.0); MEAN CORPUSCULAR VOLUME 94.9 fL (81.0-99.0); MONOCYTES # (AUTO) 0.5 10^3/uL (0.0-1.0); MONOCYTES % (AUTO) 6.5 %; NEUTROPHILS # (AUTO) 5.1 10^3/uL (1.5-6.6); NEUTROPHILS % (AUTO) 61.1 %; PLT - PLATELET COUNT 305 10^3/uL (130-450); RED BLOOD COUNT 3.96 10^6/uL (4.20-5.40); RED CELL DISTRIBUTION WIDTH 13.7 % (12.0-15.0); WHITE BLOOD COUNT 8.3 x10^3/uL (4.8-10.8)
[2018-12-02 21:16] LABS: ALBUMIN 3.7 g/dL (3.2-5.5); ALBUMIN/GLOBULIN RATIO 0.9 (1.0-2.2); BILIRUBIN,TOTAL 0.7 mg/dL (0.2-1.0); CALCIUM 8.9 mg/dL (8.5-10.3); CREATININE 0.8 mg/dL (0.4-1.0); TOTAL PROTEIN 7.6 g/dL (6.7-8.2)
[2018-12-02] MEDS ORDERED: FUROSEMIDE 20 MG TABLET PO STA (21:45)
--- NOTE | 2018-12-02 21:46 | ED Physician Documentation ---
History of Present Illness - Stated complaint Stated Complaint: BILATERAL LEG SWELLING/PAIN - Chief complaint Chief Complaint: Cardiac - History obtained from History obtained from: Patient - History of Present Illness Timing: How many weeks ago (several) Pain level max: 6 Pain level now: 4 - Additonal information Additional information: 43-year-old female with chronic bilateral lower extremity swelling. Worsening over the past week or so. No chest pain. No difficulty breathing. She is on Lasix at home, she believes 10 mg a day. She had tried compression stockings at one point but states that they were too tight. Better with elevation, worse with walking Review of Systems Constitutional: denies: Fever Cardiac: denies: Chest pain / pressure Respiratory: denies: Dyspnea, Wheezing GI: denies: Vomiting Skin: denies: Rash PD PAST MEDICAL HISTORY - Past Medical History Cardiovascular: None, Hypertension Respiratory: None Endocrine/Autoimmune: Type 2 diabetes, HyPOthyroidism Psych: Depression, Anxiety, Bipolar disorder - Past Surgical History Past Surgical History: Yes - Present Medications Home Medications: Ambulatory Orders Medication Instructions Recorded Confirmed Citalopram [CeleXA] 10 mg PO ONCE 11/16/16 12/14/16 Levothyroxine [Synthroid] 75 mcg PO QDAC 11/16/16 12/14/16 buPROPion [Wellbutrin Xl] 300 mg PO DAILY 11/16/16 12/14/16 metFORMIN [Glucophage] 500 mg PO ONCE 11/16/16 12/14/16 Hydrocodone/Acetaminophen 1 - 2 each PO Q6H PRN #14 tablet 07/31/18 [Hydrocodon-Acetaminophen 5-325] Ibuprofen [Motrin] 800 mg PO Q8H PRN #30 tablet 07/31/18 Lisinopril 10 mg PO 07/31/18 07/31/18 Hydrocodone/Acetaminophen 1 - 2 each PO Q6H PRN #12 tablet 09/27/18 [Hydrocodon-Acetaminophen 5-325] Naproxen 500 mg PO BID #30 tablet 09/27/18 - Allergies Allergies/Adverse Reactions: Allergies Allergy/AdvReac Type Severity Reaction Status Date / Time Penicillins Allergy Rash Verified 12/02/18 18:40 - Social History Does the pt smoke?: Yes Smoking Status: Current every day smoker Does the pt drink ETOH?: No Does the pt have substance abuse?: No - Immunizations Immunizations are current?: Yes - POLST Patient has POLST: No PD ED PE NORMAL - Vitals Vital signs reviewed: Yes - General General: Alert and oriented X 3, No acute distress, Other (Morbidly obese female) - HEENT HEENT: Moist mucous membranes - Neck Neck: Supple, no meningeal sign - Cardiac Cardiac: RRR - Respiratory Respiratory: No respiratory distress, Clear bilaterally - Derm Derm: Warm and dry - Extremities Extremities: Other (3+ bilateral pitting edema. No weeping. No signs of infection) - Neuro Neuro: Alert and oriented X 3 - Psych Psych: Normal mood, Normal affect Results - Vitals Vitals: Vital Signs - 24 hr 12/02/18 12/02/18 18:41 21:49 Temperature 37 C Heart Rate 115 H 95 Respiratory 22 20 Rate Blood Pressure 185/105 H 143/80 H O2 Saturation 100 99 Oxygen O2 Source Room air - Labs Labs: Laboratory Tests 12/02/18 12/02/18 12/02/18 20:51 20:51 22:10 WBC 8.3 RBC 3.96 L Hgb 12.3 Hct 37.6 MCV 94.9 MCH 31.1 H MCHC 32.7 RDW 13.7 Plt Count 305 MPV 9.0 Neut # (Auto) 5.1 Lymph # (Auto) 2.3 [place] # (Auto) 0.5 Eos # (Auto) 0.3 Baso # (Auto) 0.0 Absolute Nucleated RBC 0.00 Nucleated RBC % 0.0 Sodium 139 Potassium 3.6 Chloride 101 Carbon Dioxide 26 Anion Gap 12.0 BUN 12 Creatinine 0.8 Estimated GFR (MDRD) 79 L Glucose 132 H Calcium 8.9 Total Bilirubin 0.7 AST 27 ALT 22 Alkaline Phosphatase 82 Total Protein 7.6 Albumin 3.7 Globulin 3.9 Albumin/Globulin Ratio 0.9 L Lipase 24 Urine Color Urine Clarity Urine pH Ur Specific [place] <=1.005 Urine Protein Urine Glucose (UA) Urine Ketones Urine Occult Blood Urine Nitrite Urine Bilirubin Urine Urobilinogen Ur Leukocyte Esterase Ur Microscopic Review Urine HCG, Qual NEGATIVE 12/02/18 22:10 WBC RBC Hgb Hct MCV MCH MCHC RDW Plt Count MPV Neut # (Auto) Lymph # (Auto) [place] # (Auto) Eos # (Auto) Baso # (Auto) Absolute Nucleated RBC Nucleated RBC % Sodium Potassium Chloride Carbon Dioxide Anion Gap BUN Creatinine Estimated GFR (MDRD) Glucose Calcium Total Bilirubin AST ALT Alkaline Phosphatase Total Protein Albumin Globulin Albumin/Globulin Ratio Lipase Urine Color STRAW Urine Clarity CLEAR Urine pH 6.5 Ur Specific [place] <=1.005 Urine Protein NEGATIVE Urine Glucose (UA) NEGATIVE Urine Ketones NEGATIVE Urine Occult Blood NEGATIVE Urine Nitrite NEGATIVE Urine Bilirubin NEGATIVE Urine Urobilinogen 0.2 (NORMAL) Ur Leukocyte Esterase NEGATIVE Ur Microscopic Review NOT INDICATED Urine HCG, Qual PD MEDICAL DECISION MAKING - ED course Complexity details: considered differential, d/w patient ED course: 43-year-old female with bilateral lower extremity edema. Has an appointment with her doctor in the morning. Will give an extra dose of Lasix tonight. Recommend that she elevate her legs whenever possible and wear compression stockings. Patient counseled regarding signs and symptoms for which I believe and urgent re-evaluation would be necessary. Patient with good understanding of and agreement to plan and is comfortable going home at this time This document was made in part using voice recognition software. While efforts are made to proofread this document, sound alike and grammatical errors may occur. No infection. No DVT. Departure - Departure Disposition: 01 Home, Self Care Clinical Impression: Peripheral edema Condition: Good Instructions: ED Edema Legs Bilateral Follow-Up: Ruben Riley MD [Primary Care Provider] - Tomorrow Comments: Follow-up with your doctor tomorrow as scheduled. You should look into compression socks as well. Return if you worsen. You were given 40 mg of Lasix tonight. Discharge Date/Time: 12/02/18 22:15
[2018-12-02 21:50] VITALS: BP 143/80
[2018-12-02 22:24] LABS: BILIRUBIN,URINE NEGATIVE (NEGATIVE); GLUCOSE, URINE (UA) NEGATIVE (NEGATIVE); KETONES,URINE (UA) NEGATIVE (NEGATIVE); LEUKOCYTE ESTERASE, URINE NEGATIVE (NEGATIVE); NITRITE,URINE NEGATIVE (NEGATIVE); OCCULT BLOOD,URINE NEGATIVE (NEGATIVE); PH,URINE 6.5 PH (5.0-7.5); PROTEIN,URINE NEGATIVE (NEGATIVE); UROBILINOGEN,URINE 0.2 (NORMAL) E.U./dL (NORMAL)
[2018-12-02 22:31] LABS: CLARITY,URINE CLEAR (CLEAR)
[2018-12-02 22:32] LABS: HCG UR QUAL NEGATIVE
== END 2018-12-02 22:15 | disposition home or self-care (01) ==
LOC: ED 18:35
DX: R60.0 Localized edema (principal); M79.661 Pain in right lower leg; M79.662 Pain in left lower leg; I10 Essential (primary) hypertension; E11.9 Type 2 diabetes mellitus without complications; Z79.84 Long term (current) use of oral hypoglycemic drugs; F17.200 Nicotine dependence, unspecified, uncomplicated
CPT/HCPCS: 36415; 80053; 81003; 81025; 83690; 85025; 99282; 99283; A9270; 80048; 81001

== ENCOUNTER 2018-12-05 18:04 | Outpatient (CLI) | payer MEDICAID ==
--- NOTE | 2018-12-06 05:57 | Ultrasound Report ---
Reason: EDEMA Procedure Date: 12/05/2018 Accession Number: [id number] / [id number] Procedure: US - Duplex Ext Veins Left CPT Code: FULL RESULT: EXAM: LEFT LOWER EXTREMITY VENOUS ULTRASOUND EXAM DATE: 12/05/2018 07:20 PM. CLINICAL HISTORY: EDEMA. COMPARISON: None. TECHNIQUE: Real-time sonographic vascular imaging was performed by the steam station supervisor through the lower extremity utilizing both color-flow and Doppler spectral analysis. Multiple transportation services representative static images were saved for review. FINDINGS: Common Femoral Vein (CFV): Normal. CFV-GSV Junction: Normal. Profunda Femoral Vein (PFV): Normal. Femoral Vein (FV) Prox: Normal. Femoral Vein (FV) Mid: Normal. Femoral Vein (FV) Dist: Normal. Popliteal Vein: Normal. Posterior Tibial Veins: Normal. Peroneal Veins: Normal. Contralateral Side CFV: Normal. Other: Technically limited study due to body habitus. As such, the popliteal, posterior tibial, peroneal and mid and distal superficial femoral veins are not seen. Given the limitations, no thrombus identified. IMPRESSION: 1. Suboptimal visualization of mid and distal superficial femoral, popliteal, peroneal and posterior tibial veins. 2. Given the limitations, no evidence for deep venous thrombosis. [facility]
== END 2018-12-05 18:05 | disposition home or self-care (01) ==
LOC: DI 18:04
PROVIDERS: ATTEND Family Medicine
DX: R60.9 Edema, unspecified (principal)